=== PATIENT | female | born 1995 | race American Indian/Alaskan Native ===

== ENCOUNTER 2019-11-30 12:50 | Outpatient (CLI) | payer OTHER ==
[2019-11-30] MEDS ORDERED: LACTATED RINGERS 500 ML IV ONE (14:00)
[2019-11-30 15:00] VITALS: BP 119/68
--- NOTE | 2019-11-30 15:12 | Ultrasound Report ---
ULTRASOUND OBSTETRIC LIMITED ULTRASOUND BIOPHYSICAL PROFILE INDICATION / CLINICAL INFORMATION: Evaluate biophysical profile. COMPARISON: None available. FINDINGS: BREATHING MOVEMENT = 2 GROSS BODY MOVEMENT = 2 TONE = 2 QUALITATIVE AMNIOTIC FLUID VOLUME = 2 TOTAL BIOPHYSICAL SCORE = 8/8 AMNIOTIC FLUID INDEX (cm) = not measured. PRESENTATION: Cephalic. HEART RATE (beats per minute): 147 ADDITIONAL FINDINGS: None. IMPRESSION: 1. Biophysical Score = 8/8 Signer Name: Godwin Law MD Signed: 11/30/2019 3:07 PM Workstation Name: [email or web address]
--- NOTE | 2019-11-30 16:13 | Event Note ---
Date: 11/30/19 Triage Note for 11/30/2019 Patient came in with complaint of decreased movement today. Patient denies leaking of fluid, vaginal bleeding, abdominal pain, regular contraction, or falls/trauma. NST reactive. TRAVIS 14 cm. BPP 03/21. Patient discharged home with instructions to perform daily movement counts and follow up at her regularly scheduled OB appointment at [facility].
== END 2019-11-30 15:37 | disposition home or self-care (01) ==
LOC: APU 12:50 → TRG 12:50
PROVIDERS: ATTEND Obstetrics & Gynecology
DX: O36.8130 Decreased fetal movements, third trimester, not applicable or unspecified (principal); Z3A.36 36 weeks gestation of pregnancy
CPT/HCPCS: 59025; 76815; 76819

== ENCOUNTER 2019-12-11 08:42 | Outpatient (CLI) | payer OTHER ==
[2019-12-11 08:59] VITALS: BP 125/69
== END 2019-12-11 11:40 | disposition home or self-care (01) ==
LOC: TRG 08:42 → APU 08:43 → TRG 11:40
PROVIDERS: ATTEND Obstetrics & Gynecology
DX: O47.1 False labor at or after 37 completed weeks of gestation (principal); Z3A.38 38 weeks gestation of pregnancy
CPT/HCPCS: 59025